=== PATIENT | male | born 1970 | race African-American/Black ===

== ENCOUNTER 2016-07-29 19:46 | Inpatient (IN) | payer MEDICAID, OTHER ==
[~2016-07-29] VITALS: Ht 172.7 cm; Wt 62.6 kg
--- NOTE | 2016-07-29 22:00 | ERA ---
ER Documentation Chief Complaint Date/Time DATE: 07/29/16 TIME: 21:59 Chief Complaint cough x 1 week w/ sob today HPI The patient is a 46-year-old male, presenting to the ER because of intermittent cough for 1 week, associated with shortness of breath. He had history of CHF, did not take medication for 1 month. He has similar symptoms previously, denies headache, neck pain, chest pain, abdominal pain, vomiting, dysuria, diarrhea. He smokes, does not drink, does use amphetamine Past medical history: History of CHF Past surgical history: None ROS All systems reviewed and are negative except as per history of present illness. Medications Home Meds No Active Prescriptions or Reported Meds Allergies Allergies: Coded Allergies: No Known Allergy (Unverified , 07/29/16) Physical Exam Vitals Vital Signs Date Time Temp Pulse Resp B/P Pulse Ox O2 Delivery O2 Flow Rate FiO2 07/29/16 22:26 98 18 100 21 07/29/16 19:59 97.7 100 20 42/89 100 Physical Exam Const: No acute distress. Head: Atraumatic. Eyes: Normal Conjunctiva. ENT: Normal External Ears, Nose and Mouth. Neck: Full range of motion. No meningismus. Resp: Bilateral expiratory wheezes Cardio: Regular rate and rhythm. Abd: Soft, non distended, normal bowel sounds, non tender. Skin: No petechiae or rashes. Back: No midline or flank tenderness. Ext: No cyanosis, or edema. Neur: Awake and alert. No focal deficit Psych: Normal Mood and Affect. Result Diagram: 07/29/16 2210 07/29/16 2210 Results 24 hrs Laboratory Tests Test 07/29/16 22:10 White Blood Count 6.910^3/ul Red Blood Count 4.3310^6/ul Hemoglobin 14.0g/dl Hematocrit 40.9% Mean Corpuscular Volume 94.5fl Mean Corpuscular Hemoglobin 32.3pg Mean Corpuscular Hemoglobin Concent 34.2g/dl Red Cell Distribution Width 14.2% Platelet Count 15966^3/UL Mean Platelet Volume 10.5fl Neutrophils % 55.6% Lymphocytes % 35.2% Monocytes % 4.9% Eosinophils % 3.3% Basophils % 0.7% Nucleated Red Blood Cells % 0.0/100WBC Neutrophils # 3.810^3/ul Lymphocytes # 2.410^3/ul Monocytes # 0.310^3/ul Eosinophils # 0.210^3/ul Basophils # 0.110^3/ul Nucleated Red Blood Cells # 0.010^3/ul Prothrombin Time 13.3Sec Prothrombin Time Ratio 1.0 INR International Normalized Ratio 1.01 Activated Partial Thromboplast Time 31.5Sec Sodium Level 142mmol/L Potassium Level 3.8mmol/L Chloride Level 109mmol/L Carbon Dioxide Level 28mmol/L Anion Gap 9 Blood Urea Nitrogen 16mg/dl Creatinine 0.97mg/dl Glucose Level 88mg/dl Calcium Level 8.7mg/dl Troponin I 0.025ng/ml B-Type Natriuretic Peptide 54084KH/ML Ethyl Alcohol Level < 10.0mg/dl Current Medications Medications (Trade) Dose Ordered Sig/Cisco Route PRN Reason Start Time Stop Time Status Last Admin Dose Admin Levalbuterol (Xopenex Neb) 1.25 mg ONCE ONCE N 07/29/16 22:30 07/29/16 22:31 DC 07/29/16 22:26 Ipratropium Leeper (Atrovent 0.02% (Neb)) 0.5 mg ONCE ONCE HHN 07/29/16 22:30 07/29/16 22:31 DC 07/29/16 22:26 Furosemide (Lasix) 40 mg ONCE ONCE IV 07/30/16 00:00 07/30/16 00:01 Procedures/[place] [id number] Radiology Main Line: [phone] DIAGNOSTIC IMAGING REPORT Patient: BRENT PERERA : 1970 Age: 46 Sex: M MR #: [id number] DOS: 07/29/16 2205 Ordering MD: ROHIT HERRERA MD Location: E/R Room/Bed: PROCEDURE: XR Chest AP portable CLINICAL INDICATION: Short of breath TECHNIQUE: An AP portable radiograph of the chest was submitted. COMPARISON: None. FINDINGS: Support Hardware: None Cardiovascular: The heart is mildly enlarged although pulmonary vasculature is upper normal. Lung Tobar: The lung tobar appear clear with no nodule, alveolar infiltrate, or interstitial prominence evident. Pleural Spaces: No pneumothorax or pleural effusion is identified. Osseous Structures: The osseous structures appear intact. Soft Tissues: The soft tissues appear unremarkable. IMPRESSION: 1. Mild cardiomegaly with the pulmonary vasculature upper normal. 2. Otherwise, unremarkable portable chest. Physician Dinah Date Time Electronically viewed and signed by Physician Dinah on 07/29/2016 22:45 RH/ CC: ROHIT HERRERA MD EKG: Read by emergency physician Rate/Rhythm: Normal Sinus Rhythm 96 beats/min QRS, ST, T-waves: No ST elevation, no T inversion, PVC, LVH Impression: Abnormal EKG Urine drug screen is pending MEDICAL MAKING DECISION: The patient is a 46-year-old male, presenting with acute CHF exacerbation, acute bronchospasm. He was treated with Lasix 40 mg IV for acute CHF and Atrovent 0.5 and Xopenex 1.25 milligrams for acute bronchospasm with good response The differential diagnoses considered include but are not limited to asthma, COPD, pneumonia, pulmonary embolus, pleural effusion, congestive heart failure. Departure Diagnosis: Primary Impression: Acute CHF Condition: Stable Comments I discussed the findings with the patient. I discussed the patient with the on- call hospitalist Dr. Nunez who was made aware of the lab, the treatment, the patient condition. The patient is admitted to telemetry at 11:50 pm ROHIT HERRERA MD Jul 29, 2016 22:00
[2016-07-29] MEDS ORDERED: IPRATROPIUM (NEB) 0.5 MG/2.5 ML AMP HHN ONE (22:30)
[2016-07-29] MEDS ORDERED: LEVALBUTEROL (NEB) 1.25 MG/0.5 ML AMP HHN ONE (22:30)
[2016-07-29 22:40] LABS: ADD SCAN DIFF NO
[2016-07-29 22:41] LABS: BASOPHIL # 0.1 10^3/ul (0.0-0.1); BASOPHILS % 0.7 % (0.0-2.0); EOSINOPHILS # 0.2 10^3/ul (0.0-0.5); EOSINOPHILS % 3.3 % (0.0-7.0); HEMATOCRIT 40.9 % (42.0-52.0); LYMPHOCYTES # 2.4 10^3/ul (0.8-2.9); LYMPHOCYTES % 35.2 % (15.0-51.0); MEAN CORPUSCULAR HEMOGLOBIN 32.3 pg (29.0-33.0); MEAN CORPUSCULAR HGB CONC 34.2 g/dl (32.0-37.0); MEAN CORPUSCULAR VOLUME 94.5 fl (82.0-101.0); MEAN PLATELET VOLUME 10.5 fl (7.4-10.4); MONOCYTE # 0.3 10^3/ul (0.3-0.9); MONOCYTES % 4.9 % (0.0-11.0); NEUTROPHIL # 3.8 10^3/ul (1.6-7.5); NEUTROPHILS % 55.6 % (39.0-77.0); PLATELET COUNT 213 10^3/UL (140-415); RED BLOOD COUNT 4.33 10^6/ul (4.70-6.10); RED CELL DISTRIBUTION WIDTH 14.2 % (11.5-14.5); WHITE BLOOD COUNT 6.9 10^3/ul (4.8-10.8)
--- NOTE | 2016-07-29 22:45 | RADRPT ---
PROCEDURE: XR Chest AP portable CLINICAL INDICATION: Short of breath TECHNIQUE: An AP portable radiograph of the chest was submitted. COMPARISON: None. FINDINGS: Support Hardware: None Cardiovascular: The heart is mildly enlarged although pulmonary vasculature is upper normal. Lung Marks: The lung marks appear clear with no nodule, alveolar infiltrate, or interstitial promi nence evident. Pleural Spaces: No pneumothorax or pleural effusion is identified. Osseous Structures: The osseous structures appear intact. Soft Tissues: The soft tissues appear unremarkable. IMPRESSION: 1. Mild cardiomegaly with the pulmonary vasculature upper normal. 2. Otherwise, unremarkable portable chest. Physician Dinah Date Time Electronically viewed and signed by Physician Dinah on 07/29/2016 22:45 RH/
[2016-07-29 23:00] LABS: CALCIUM 8.7 mg/dl (8.4-10.2); CREATININE 0.97 mg/dl (0.61-1.24); POTASSIUM 3.8 mmol/L (3.5-5.1)
[2016-07-29 23:16] LABS: TROPONIN-I 0.025 ng/ml (0.00-0.12)
[2016-07-29 23:51] LABS: INR 1.01; PROTIME 13.3 Sec (12.2-14.2)
[2016-07-29 23:52] LABS: PARTIAL THROMBOPLASTIN TIME 31.5 Sec (25.0-35.0)
[2016-07-30] VITALS (13 sets, daily range): BP systolic 118–126; BP diastolic 83–96; PULSE 90–98; RESP 19–20; TEMP 98.2; Ht 172.7 cm; Wt 62.6 kg
[2016-07-30] MEDS ORDERED: FUROSEMIDE 40 MG INJ IV ONE
[2016-07-30 00:01] LABS: CANNABINOIDS Positive (NEGATIVE)
[2016-07-30 00:04] LABS: BARBITURATES Negative (NEGATIVE); BENZODIAZEPINES Negative (NEGATIVE); COCAINE Negative (NEGATIVE); OPIATES Negative (NEGATIVE)
[2016-07-30] MEDS ORDERED: ONDANSETRON 4 MG INJ IV PRN (01:00)
[2016-07-30] MEDS ORDERED: ALBUTEROL/IPRATROPIUM (NEB) 3 ML AMP HHN PRN (01:00)
[2016-07-30] MEDS: ACETAMINOPHEN 325 MG TAB PO PRN ×2 (01:37→09:41)
[2016-07-30] MEDS ORDERED: FUROSEMIDE 20 MG INJ IV SCH (06:00)
[2016-07-30 06:38] LABS: ADD SCAN DIFF NO
[2016-07-30 06:44] LABS: BASOPHIL # 0.1 10^3/ul (0.0-0.1); BASOPHILS % 0.9 % (0.0-2.0); EOSINOPHILS # 0.3 10^3/ul (0.0-0.5); EOSINOPHILS % 4.7 % (0.0-7.0); HEMATOCRIT 41.8 % (42.0-52.0); LYMPHOCYTES # 2.1 10^3/ul (0.8-2.9); LYMPHOCYTES % 32.6 % (15.0-51.0); MEAN CORPUSCULAR HGB CONC 33.5 g/dl (32.0-37.0); MEAN CORPUSCULAR VOLUME 92.7 fl (82.0-101.0); MEAN PLATELET VOLUME 10.3 fl (7.4-10.4); MONOCYTE # 0.4 10^3/ul (0.3-0.9); MONOCYTES % 5.8 % (0.0-11.0); NEUTROPHIL # 3.5 10^3/ul (1.6-7.5); NEUTROPHILS % 55.7 % (39.0-77.0); PLATELET COUNT 213 10^3/UL (140-415); RED BLOOD COUNT 4.51 10^6/ul (4.70-6.10); RED CELL DISTRIBUTION WIDTH 14.4 % (11.5-14.5); WHITE BLOOD COUNT 6.3 10^3/ul (4.8-10.8)
[2016-07-30 07:11] LABS: ALBUMIN 3.5 g/dl (3.3-4.9); ALBUMIN/GLOBULIN RATIO 1.59; BILIRUBIN,INDIRECT 0.6 mg/dl (0-1.1); BILIRUBIN,TOTAL 0.6 mg/dl (0.2-1.3); CALCIUM 9.1 mg/dl (8.4-10.2); CHOL/HDL RATIO 2.4 RATIO; CREATININE 0.94 mg/dl (0.61-1.24); MAGNESIUM 1.8 mg/dl (1.7-2.5); PHOSPHORUS 4.2 mg/dl (2.5-4.9); POTASSIUM 3.3 mmol/L (3.5-5.1); TOTAL PROTEIN 5.7 g/dl (6.1-8.1)
[2016-07-30 07:39] LABS: THYROID STIMULATING HORMONE 2.59 MIU/L (0.465-4.680)
--- NOTE | 2016-07-30 08:14 | HP ---
DATE OF ADMISSION: 07/29/2016 TIME: 7 p.m. CHIEF COMPLAINT: Shortness of breath and cough. HISTORY OF PRESENT ILLNESS: The patient is a 46-year-old male with a history of CHF, who presented to the emergency department complaining of shortness of breath and cough with 1 week duration. The cough is for the most part dry and shortness of breath is worse with exertion. Denies chest pain. He states that he has not taken his Lasix for quite some time now. He has a history of tobacco as well as methamphetamine use. When he presented to the ER, vitals were stable, even though the initial vitals were documented as 4 2/89, it was meant 142/89. He was given 40 mg IV Lasix and breathing treatments with albuterol and Atrovent. Chest x-ray shows mild cardiomegaly with pulmonary vasculature in the upper limit of norm al, otherwise unremarkable. Laboratory value shows unremarkable CBC and BMP. However, his BNP is 1 0,200. Initial EKG shows sinus rhythm with a rate of 96 with some PVCs, but no ST-T ____. REVIEW OF SYSTEMS: A 12-point review was performed, negative except as mentioned in the HPI. PAST MEDICAL HISTORY: As per HPI. PAST SURGICAL HISTORY: Denies. SOCIAL HISTORY: He smokes a few cigarettes a day. He also has a history of methamphetamine use. ALLERGIES: NO KNOWN DRUG ALLERGIES. HOME MEDICATIONS: Includes Lasix; however, he has not taken it for a while. PHYSICAL EXAMINATION: VITAL SIGNS: Stable. GENERAL: The patient lying in bed in no acute distress. He is alert and oriented and answers quest ions appropriately. HEENT: No obvious head deformity, pupils react to light. Extraocular muscles intact. CARDIOVASCULAR: Tachycardic with regular rhythm. LUNGS: Clear. ABDOMEN: Soft, nontender, nondistended. Positive bowel sounds. EXTREMITIES: No edema. NEUROLOGIC: No focal deficits. LABORATORY: Pertinent positive results as mentioned in the HPI. IMAGING: Chest x-ray with results as mentioned in the HPI. IMPRESSION: 1. Congestive heart failure exacerbation. 2. Methamphetamine use. 3. Smoking history. PLAN: Continue telemetry monitoring. The patient does state that he has a history of CHF and that he has not been taking his Lasix. His condition is probably the result of methamphetamine use. Vinny l obtain a 2-D echo. He will be continued with Lasix. Will consider cardiology consult. He has be en advised about cessation of tobacco as well as about methamphetamine. Further workup and management per clinical course. Dictated By: CINDY LARSEN/DOUG Conf#: [id number] DID#: [id number]
[2016-07-30] MEDS: HEPARIN 5,000 UNIT/0.5 ML VIAL SC SCH ×2 (09:48→21:00)
[2016-07-30] MEDS ORDERED: POTASSIUM CHLORIDE (SR) 20 MEQ TAB PO STA (11:10)
--- NOTE | 2016-07-30 11:41 | CONS ---
Date/Time of Note Date/Time of Note DATE: 07/30/16 TIME: 11:37 Assessment/Plan Assessment/Plan Additional Assessment/Plan Chest x-ray was reviewed from yesterday which is showing cardiomegaly. 2D echocardiogram done at bedside short while ago is showing a very poor ejection fraction of around 15%. With mitral regurgitation. Assessment recommendations; next 1. 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 Continue current treatment. Cardiology consult is pending per Consultation Date/Type/Reason Admit Date/Time Jul 29, 2016 at 23:58 Date of Consultation: Jul 30, 2016 Type of Consultation: Pulmonary Reason for Consultation Pulmonary consultations obtained for evaluation of shortness of breath. History of presenting any; patient is a 46-year-old male who came into the emergency room with a few weeks history of increasing shortness of breath. Upon evaluation patient was diagnosed with congestive heart failure exacerbation admitted to the medical floor and started on intravenous diuretics with significant improvement in symptoms. She denies any wheezing, chest pain, angina, sputum production. Denies any abdominal pain nausea vomiting fever chills. Past medical history; is essentially unremarkable. Medications; reviewed. Allergies; none. Social history; patient smokes and also has a history of extensive drug abuse. Family history; patient is single he does not have any children. Occupational history; patient is on disability. Review of systems; denies any headache, visual changes. Sinus symptoms. Chest pain, angina. Complains of shortness of breath with interval improvement. Denies any abdominal pain, nausea vomiting, melena, hematochezia. Denies any edema. Denies any orthopnea. Any weight change. Any skin changes. General exam; young male, awake alert currently in no distress, laying flat in bed. Social History Smoking Status: Current every day smoker Exam/Review of Systems Vital Signs Vitals Vital Signs Date Time Temp Pulse Resp B/P Pulse Ox O2 Delivery O2 Flow Rate FiO2 07/30/16 08:03 90 07/30/16 07:39 97.5 20 120/86 93 07/29/16 22:26 21 Exam HEENT examination; supple neck, positive JVD. No lymphadenopathy. Midline trachea. No thyromegaly. No neck masses. No neck bruits. Patient has a multiple carious teeth. Pupils are midsize and reactive to light bilaterally and equally. Extraocular movements are intact. Chest examination; clear to auscultation. S1-S2 audible, no murmurs. There is an S3 gallop. Regular rhythm. Abdomen examination; soft, nondistended. No organomegaly. Bowel sounds audible. No scars are present. Extremity examination; no peripheral edema. Pulses 2+ bilaterally. No clubbing. CASINO BANKER examination; no focal deficit. Results Result Diagram: 07/30/16 0611 07/30/16 0611 Results 24 hrs Laboratory Tests Test 07/29/16 22:10 07/29/16 22:46 07/30/16 06:11 White Blood Count 6.9 6.3 Red Blood Count 4.33 L 4.51 L Hemoglobin 14.0 14.0 Hematocrit 40.9 L 41.8 L Mean Corpuscular Volume 94.5 92.7 Mean Corpuscular Hemoglobin 32.3 31.0 Mean Corpuscular Hemoglobin Concent 34.2 33.5 Red Cell Distribution Width 14.2 14.4 Platelet Count 213 213 Mean Platelet Volume 10.5 H 10.3 Neutrophils % 55.6 55.7 Lymphocytes % 35.2 32.6 Monocytes % 4.9 5.8 Eosinophils % 3.3 4.7 Basophils % 0.7 0.9 Nucleated Red Blood Cells % 0.0 0.0 Neutrophils # 3.8 3.5 Lymphocytes # 2.4 2.1 Monocytes # 0.3 0.4 Eosinophils # 0.2 0.3 Basophils # 0.1 0.1 Nucleated Red Blood Cells # 0.0 0.0 Prothrombin Time 13.3 Prothrombin Time Ratio 1.0 INR International Normalized Ratio 1.01 Activated Partial Thromboplast Time 31.5 Sodium Level 142 144 Potassium Level 3.8 3.3 L Chloride Level 109 109 Carbon Dioxide Level 28 28 Anion Gap 9 10 Blood Urea Nitrogen 16 16 Creatinine 0.97 0.94 Glucose Level 88 75 Calcium Level 8.7 9.1 Troponin I 0.025 B-Type Natriuretic Peptide 95166 H Ethyl Alcohol Level < 10.0 Urine Opiates Screen Negative Urine Barbiturates Negative Urine Amphetamines Screen POSITIVE Urine Benzodiazepines Screen Negative Urine Cocaine Screen Negative Urine Cannabinoids Positive Hemoglobin A1c 5.6 Phosphorus Level 4.2 Magnesium Level 1.8 Total Bilirubin 0.6 Direct Bilirubin 0.00 Indirect Bilirubin 0.6 Aspartate Amino Transf (AST/SGOT) 39 Alanine Aminotransferase (ALT/SGPT) 46 Alkaline Phosphatase 68 Total Protein 5.7 L Albumin 3.5 Globulin 2.20 Albumin/Globulin Ratio 1.59 Triglycerides Level 93 Cholesterol Level 149 LDL Cholesterol, Calculated 70 HDL Cholesterol 60 Cholesterol/HDL Ratio 2.4 Thyroid Stimulating Hormone (TSH) 2.590 Medications Medications Current Medications Furosemide (Lasix) 20 mg DAILY@06 IV Last administered on 07/30/16 06:18; Admin Dose 20 MG; Start 07/30/16 at 06:00 Acetaminophen (Tylenol Tab) 650 mg Q6H PRN PO PAIN AND OR ELEVATED TEMP Last administered on 07/30/16 09:41; Admin Dose 650 MG; Start 07/30/16 at 01:00 Heparin Sodium (Porcine) (Heparin (5000 Units/0.5 ml)) 5,000 unit BID SC Last administered on 07/30/16 09:48; Admin Dose 5,000 UNIT; Start 07/30/16 at 09:00 Ondansetron HCl (Zofran Inj) 4 mg Q6H PRN IV NAUSEA AND/OR VOMITING; Start 07/30 at 01:00 Pantoprazole (Protonix Tab) 40 mg DAILY@06 PO ; Start 07/31/16 at 06:00 Nicotine (Nicoderm 7 Mg/ 24 Hr) 1 patch DAILY TRANSDERM ; Start 07/30/16 at 13:00 DOMINGO CLIFFORD Jul 30, 2016 11:41
[2016-07-30] MEDS: NICOTINE (7 MG/24 HR) PATCH TRANSDERM SCH (12:59)
--- NOTE | 2016-07-30 19:53 | RADRPT ---
Echocardiogram Report Patient Name: BRENT PERERA Gender: Male Date: 1970 Study Date: 30-Jul-2016 [employer] Finishing Hand: Arin [facility] Location: 502 Ref. Physician: TIMI ELENA Quality: Adequate Procedures: Transthoracic echocardiogram with complete 2D, M-Mode, and doppler examination. Indications: Congestive Heart Failure. 2D/M Mode Doppler Measurement Value Normal Ranges Measurement Value Normal Ranges LVIDd 2D 6.3 3.5 - 5.6 cm AV Peak Abraham 0.8 m/sec LVIDs 2D 5.9 2.1 - 4.1 cm AV Peak PG 2.4 mmHg LVPWd 2D 0.9 0.6 - 1.1 cm LVOT Peak Abraham 0.6 m/sec IVSd 2D 0.8 0.6 - 1.1 cm LVOT Peak PG 1.2 mmHg AoR Diam 2D 2.8 2.0 - 3.7 cm TR Peak Abraham 3.1 m/sec EDV 2D 200.4 cm3 TR Peak PG 38.9 mmHg ESV 2D 204.3 cm3 RVSP 29.0 mmHg LA Dimen 2D 4.0 2.3 - 4.0 cm Findings Left Ventricle: Normal left ventricular wall thickness. Mild enlargement of left ventricle cavity. Severe global left ventricular systolic dysfunction. Ejection fraction is visually estimated at 2025 %. Right Ventricle: Moderate enlargement of right ventricle. Moderate right ventricular hypokinesis. Left Atrium: There is moderate enlargement of left atrium. Right Atrium: There is mild enlargement of right atrium. Mitral Valve: Mild mitral leaflet calcification. Moderate to severe mitral valve regurgitation. Aortic Valve: Normal appearance of the aortic valve. No significant aortic stenosis or insufficiency. Tricuspid Valve: Normal appearance of the tricuspid valve. Estimated peak PA systolic pressure 29 mmHg. There is mild to moderate tricuspid regurgitation. Pulmonic Valve: Normal pulmonic valve appearance. There is mild pulmonic regurgitation. Pericardium: Normal pericardium with no significant pericardial effusion. Aorta: Normal aortic root. IVC: Normal size and poor inspiratory collapse consistent with elevated right atrial pressure. Conclusions 1.Normal left ventricular wall thickness. Mild enlargement of left ventricle cavity. Severe global left ventricular systolic dysfunction. Ejection fraction is visually estimated at 20-25 %. 2.Moderate enlargement of right ventricle. Moderate right ventricular hypokinesis. 3.There is moderate enlargement of left atrium. 4.There is mild enlargement of right atrium. 5.Mild mitral leaflet calcification. Moderate to severe mitral valve regurgitation. 6.Normal appearance of the tricuspid valve. Estimated peak PA systolic pressure 29 mmHg. There is mild to moderate tricuspid regurgitation. 7.Normal pulmonic valve appearance. There is mild pulmonic regurgitation. Electronically Signed By: Cortez Navas 30-Jul-2016 19:52:07 -0700 Patient Name: BRENT PERERA Study Date: 30-Jul-2016 [id number]
--- NOTE | 2016-07-30 21:02 | CONS ---
DATE OF ADMISSION: 07/29/2016 DATE OF CONSULTATION: 07/30/2016 REASON FOR CONSULTATION: Congestive heart failure exacerbation. REQUESTING PHYSICIAN: Dr. Elena from the hospitalist service. HISTORY OF PRESENT ILLNESS: Mr. Burrows is a 46-year-old male with a history of cardiomyopathy with decreased left ventricular ejection fraction, congestive heart failure, illicit drug use including a mphetamines, methamphetamines, who presented with complaints of worsening shortness of breath, ortho pnea, cough x1 week. The patient describes cough as dry, nonproductive. Upon arrival in the emerge ncy department, temperature 97.7, blood pressure 143/89, pulse 100, respiratory rate 20, saturating 100%. The patient's labs showed white blood cell count 6.9, hemoglobin 14, platelet count 213. Sod ium 142, potassium 20, creatinine 0.97. Troponin negative. BNP of 10,200. LDL 70, HDL 60. TSH 2. 59. Hemoglobin A1c of 5.6. INR 1.0. Tox screen positive for amphetamines, positive for cannabinoi ds. The patient's electrocardiogram revealed sinus rhythm, rate 96, normal axis, borderline voltage criteria for left ventricular hypertrophy and inferolateral biphasic T-wave abnormalities. Patient subsequently admitted to the floor and since admit to the floor, has been treated with Lasix diures is with improvement in symptomatology. The patient at this time denies chest pain. PAST MEDICAL HISTORY: As above in HPI. MEDICATIONS CURRENTLY IN HOSPITAL: 1. Protonix 40 mg daily. 2. Nicotine patch. 3. Heparin 5000 subq b.i.d. 4. Lasix 20 mg IV daily. 5. Tylenol p.r.n. 6. Zofran p.r.n. 7. DuoNebs p.r.n. ALLERGIES: NO KNOWN DRUG ALLERGIES. SOCIAL HISTORY: Positive tobacco daily. Positive illicit drug use, amphetamines, methamphetamines. No ETOH per patient. FAMILY HISTORY: No history of sudden cardiac or early CAD. REVIEW OF SYSTEMS: As above in HPI. CONSTITUTIONAL: No fevers, chills. PULMONARY: Shortness of breath. CARDIOVASCULAR: Congestive heart failure. GASTROINTESTINAL: No vomiting. GENITOURINARY: No hematuria. MUSCULOSKELETAL: Degenerative joint disease. PSYCHIATRIC: No documented psych history. NEUROLOGIC: No documented CVA. PHYSICAL EXAMINATION VITAL SIGNS: Temperature 97.8, blood pressure 118/92, pulse 99, respiratory 20, saturating 98%. GENERAL: The patient is alert, awake, in no acute distress. NECK: JVP approximately 9-10 cm water. CHEST: Bibasilar crackles. HEART: Regular rate and rhythm. Normal S1, S2, I/ systolic murmur, nondisplaced PMI. ABDOMEN: Positive bowel sounds, soft. EXTREMITIES: Trace edema, 1+ pulses bilaterally, posterior tibial. LABORATORIES: As above in HPI, with most recent from today, sodium 144, potassium 3.3, creatinine 0 .9. White count 6.3, hemoglobin 14, platelet count 213. IMAGING STUDIES: Chest x-ray from the 7th revealing mild cardiomegaly with pulmonary vascular ____ was normal. ECG: As above in HPI. No further electrocardiograms for my review at this time. IMPRESSION: 1. Congestive heart failure exacerbation by history, systolic, acute on chronic. 2. Abnormal electrocardiogram, assess for acute coronary syndrome. 3. Shortness of breath secondary to #1. 4. History of cardiomyopathy with severely depressed left ventricular ejection fraction. 5. Ongoing tobacco usage. 6. Illicit drug use. 7. Hyperkalemia 8. Increased BNP. RECOMMENDATIONS: 1. At this time, would maintain the patient on telemetry monitoring to follow rhythm and rate close ly. 2. Would check serial EKGs to assess for any significant ongoing changes and complete a rule out fo r myocardial infarction to ensure that the patient's constellation of symptoms are not due to any re cent acute coronary syndrome versus acute myocardial infarction and thus send troponins q.6h x2. 3. Additionally place the patient on beta blockade and afterload reduction with VICKI inhibitor. 4. We will continue the patient's Lasix diuresis. 5. Replete the patient's potassium as you have done and will follow the patient's magnesium as well . Thank you for allowing me to take part in the care of this patient. I will continue to follow along very closely with you with recommendations to be made as the patient progresses through his [facility] clinical course. Dictated By: ADRIAN QUINTEROS/DOUG Conf#: [id number] DID#: [id number] CC: TIMI ELENA;*EndCC*
[2016-07-30] MEDS: FUROSEMIDE 20 MG INJ IV SCH (21:35)
[2016-07-31] VITALS (13 sets, daily range): BP systolic 97–129; BP diastolic 69–94; PULSE 81–156; RESP 16–19
[2016-07-31] MEDS: PANTOPRAZOLE (EC) 40 MG TAB PO SCH (06:49)
[2016-07-31] MEDS: FUROSEMIDE 20 MG INJ IV SCH (06:50)
[2016-07-31 07:23] LABS: ADD SCAN DIFF NO
[2016-07-31 07:27] LABS: BASOPHIL # 0.1 10^3/ul (0.0-0.1); BASOPHILS % 1.3 % (0.0-2.0); EOSINOPHILS # 0.3 10^3/ul (0.0-0.5); EOSINOPHILS % 4.9 % (0.0-7.0); HEMATOCRIT 43.1 % (42.0-52.0); LYMPHOCYTES # 1.7 10^3/ul (0.8-2.9); LYMPHOCYTES % 26.2 % (15.0-51.0); MEAN CORPUSCULAR HEMOGLOBIN 32.1 pg (29.0-33.0); MEAN CORPUSCULAR HGB CONC 34.8 g/dl (32.0-37.0); MEAN CORPUSCULAR VOLUME 92.1 fl (82.0-101.0); MEAN PLATELET VOLUME 10.4 fl (7.4-10.4); MONOCYTE # 0.4 10^3/ul (0.3-0.9); MONOCYTES % 5.7 % (0.0-11.0); NEUTROPHIL # 3.9 10^3/ul (1.6-7.5); NEUTROPHILS % 61.7 % (39.0-77.0); PLATELET COUNT 234 10^3/UL (140-415); RED BLOOD COUNT 4.68 10^6/ul (4.70-6.10); RED CELL DISTRIBUTION WIDTH 14.2 % (11.5-14.5); WHITE BLOOD COUNT 6.3 10^3/ul (4.8-10.8)
--- NOTE | 2016-07-31 07:36 | PN ---
DATE: 07/30/2016 SUBJECTIVE: The patient has slightly less shortness of breath symptoms. OBJECTIVE: VITAL SIGNS: Stable. GENERAL: The patient is lying in bed, no acute distress. HEENT: Pupils equal, round, react to light. Extraocular muscles intact. NECK: Supple, no thyromegaly. LUNGS: Distant breath sounds bilaterally. CARDIOVASCULAR: S1, S2 heard. No rubs or gallops. ABDOMEN: Soft, nontender, nondistended. Normal bowel sounds. No rebound or guarding. MUSCULOSKELETAL: No lower extremity edema bilaterally. NEUROLOGIC: No focal deficits. LABORATORY DATA: The BNP is 10,200. The comprehensive metabolic panel is normal except potassium is a little low at 3.3. CBC is normal. The U-tox is positive for amphetamines and for cannabis. ASSESSMENT AND PLAN: This is a 46-year-old male with history of congestive heart failure presents w ith shortness of breath and cough x1 week, with signs of congestive heart failure exacerbation. 1. Shortness of breath and cough. Again, secondary to congestive heart failure exacerbation. Agai n, continue low-dose Lasix. We will follow up 2D echocardiogram results as well. Follow up electro lyte levels. If there are any abnormalities, consider cardiology consult at that time. Also contin ue DuoNeb p.r.n. 2. History of amphetamine use. Counseled about cessation. 3. Smoking history. Consider nicotine patch and counseled on cessation of tobacco 4. Gastrointestinal prophylaxis. Add Protonix p.o. 5. Deep venous thrombosis prophylaxis. Add heparin subcutaneously. Dictated By: TIMI MURDOCK Conf#: [id number] DID#: [id number]
[2016-07-31 07:51] LABS: CALCIUM 8.8 mg/dl (8.4-10.2); CREATININE 1.09 mg/dl (0.61-1.24); POTASSIUM 4.1 mmol/L (3.5-5.1)
--- NOTE | 2016-07-31 08:59 | RADRPT ---
Vent Rate: 85 bpm RR Interval: 0 msec [place] Interval: 148 msec QRS Duration: 88 msec QT Interval: 408 msec QTC Interval: 485 msec P-R-T [place]: 65 - 77 - 61 degrees Normal sinus rhythm Possible Left atrial enlargement Poor R -Wave progression Abnormal ECG Nonspecific ST-T changes No previous tracing available for comparison Electronically Signed By: Isak Sanches [id number]
[2016-07-31] MEDS: NICOTINE (7 MG/24 HR) PATCH TRANSDERM SCH (09:49)
[2016-07-31] MEDS: LISINOPRIL 5 MG TAB PO SCH (09:50)
[2016-07-31] MEDS: HEPARIN 5,000 UNIT/0.5 ML VIAL SC SCH ×3 (09:54→22:09)
--- NOTE | 2016-07-31 11:19 | CONS ---
Date/Time of Note Date/Time of Note DATE: 07/31/16 TIME: 11:16 Consult Date/Type/Reason Admit Date/Time Jul 29, 2016 at 23:58 Initial Consult Date 07/30/16 Type of Consultation: Pulmonary Subjective Patient states his breathing is better this morning less shortness of breath patient states his breathing is better this morning with less shortness of breath Objective Vital Signs Date Time Temp Pulse Resp B/P Pulse Ox O2 Delivery O2 Flow Rate FiO2 07/31/16 11:08 98.0 85 16 102/76 96 07/29/16 22:26 21 Intake and Output 07/30/16 07/30/16 07/31/16 15:00 23:00 07:00 Intake Total 1000 ml 350 ml Balance 1000 ml 350 ml Exam GENERAL: Thin gentleman comfortable at rest no acute distress VITAL SIGNS: per chart NECK: Supple. No JVD or lymphadenopathy. CARDIAC EXAM: S1, S2. 2/6 systolic ejection murmur CHEST: few rales bilaterally ABDOMEN: Soft, nontender. No guarding or rebound. EXTREMITIES: No cyanosis, clubbing or edema. NEUROLOGIC: Generalized weakness. No focal deficits. Results/Medications Result Diagram: 07/31/16 0640 07/31/16 0640 Results 24 hrs Laboratory Tests Test 07/31/16 00:30 07/31/16 06:40 Troponin I 0.023 0.023 White Blood Count 6.3 Red Blood Count 4.68 L Hemoglobin 15.0 Hematocrit 43.1 Mean Corpuscular Volume 92.1 Mean Corpuscular Hemoglobin 32.1 Mean Corpuscular Hemoglobin Concent 34.8 Red Cell Distribution Width 14.2 Platelet Count 234 Mean Platelet Volume 10.4 Neutrophils % 61.7 Lymphocytes % 26.2 Monocytes % 5.7 Eosinophils % 4.9 Basophils % 1.3 Nucleated Red Blood Cells % 0.0 Neutrophils # 3.9 Lymphocytes # 1.7 Monocytes # 0.4 Eosinophils # 0.3 Basophils # 0.1 Nucleated Red Blood Cells # 0.0 Sodium Level 140 Potassium Level 4.1 Chloride Level 106 Carbon Dioxide Level 28 Anion Gap 10 Blood Urea Nitrogen 21 H Creatinine 1.09 Glucose Level 106 Calcium Level 8.8 Medications Current Medications Acetaminophen (Tylenol Tab) 650 mg Q6H PRN PO PAIN AND OR ELEVATED TEMP Last administered on 07/30/16 09:41; Admin Dose 650 MG; Start 07/30/16 at 01:00 Heparin Sodium (Porcine) (Heparin (5000 Units/0.5 ml)) 5,000 unit BID SC Last administered on 07/31/16 09:54; Admin Dose 5,000 UNIT; Start 07/30/16 at 09:00 Ondansetron HCl (Zofran Inj) 4 mg Q6H PRN IV NAUSEA AND/OR VOMITING; Start 07/30 at 01:00 Pantoprazole (Protonix Tab) 40 mg DAILY@06 PO Last administered on 07/31/16 06: 49; Admin Dose 40 MG; Start 07/31/16 at 06:00 Nicotine (Nicoderm 7 Mg/ 24 Hr) 1 patch DAILY TRANSDERM Last administered on 09:49; Admin Dose 1 PATCH; Start 07/30/16 at 13:00 Lisinopril (Zestril) 2.5 mg DAILY PO Last administered on 07/31/16 09:50; Admin Dose 2.5 MG; Start 07/31/16 at 09:00 Carvedilol (Coreg) 3.125 mg BID PO Last administered on 07/31/16 09:50; Admin Dose 3.125 MG; Start 07/30/16 at 21:00 Assessment/Plan Chief Complaint/Hosp Course Assessment. 1. Cardiomyopathy likely secondary to substance abuse ejection fraction estimated at 15% 2. Acute congestive cardiac failure Plan 1. Supplemental O2 as needed 2. Diuretics 3. Cardiac recommendations 4. hired worker input 5. Anticipate discharge tomorrow Problems: LEENA CLARK MD, [facility] Jul 31, 2016 11:19
--- NOTE | 2016-07-31 11:54 | PN ---
Date/Time of Note Date/Time of Note DATE: 07/31/16 TIME: 11:51 Assessment/Plan VTE Prophylaxis VTE Prophylaxis Intervention: heparin Lines/Catheters IV [facility]from [facility] Saline Lock Assessment/Plan Chief Complaint/Hosp Course ASSESSMENT AND PLAN: 46-year-old male with history of congestive heart failure presents with shortness of breath and cough x1 week, with signs of congestive heart failure exacerbation. 1. Shortness of breath and cough. Again, secondary to congestive heart failure exacerbation. EF = 20-25% - continue Lasix. - continue DuoNeb p.r.n. - VICKI(-), Bblocker, f/u CV and pulm rec's - AICD? 2. History of amphetamine use. Counseled about cessation. 3. Smoking history - nicotine patch and counseled on cessation of tobacco 4. Gastrointestinal prophylaxis - Protonix p.o. 5. Deep venous thrombosis prophylaxis - heparin subcutaneously. Problems: Subjective 24 Hr Interval Summary Free Text/Dictation Pt has less SOB. Seen by pulm and CV teams. Exam/Review of Systems Vital Signs Vitals Vital Signs Date Time Temp Pulse Resp B/P Pulse Ox O2 Delivery O2 Flow Rate FiO2 07/31/16 11:08 98.0 85 16 102/76 96 07/29/16 22:26 21 Intake and Output 07/30/16 07/30/16 07/31/16 15:00 23:00 07:00 Intake Total 1000 ml 350 ml Balance 1000 ml 350 ml Exam GENERAL: The patient is lying in bed, no acute distress. HEENT: Pupils equal, round, react to light. Extraocular muscles intact. NECK: Supple, no thyromegaly. LUNGS: Distant breath sounds bilaterally. CARDIOVASCULAR: S1, S2 heard. No rubs or gallops. ABDOMEN: Soft, nontender, nondistended. Normal bowel sounds. No rebound or guarding. MUSCULOSKELETAL: No lower extremity edema bilaterally. NEUROLOGIC: No focal deficits. Results Result Diagram: 07/31/16 0640 07/31/16 0640 Results 24 hrs Laboratory Tests Test 07/31/16 00:30 07/31/16 06:40 Troponin I 0.023 0.023 White Blood Count 6.3 Red Blood Count 4.68 L Hemoglobin 15.0 Hematocrit 43.1 Mean Corpuscular Volume 92.1 Mean Corpuscular Hemoglobin 32.1 Mean Corpuscular Hemoglobin Concent 34.8 Red Cell Distribution Width 14.2 Platelet Count 234 Mean Platelet Volume 10.4 Neutrophils % 61.7 Lymphocytes % 26.2 Monocytes % 5.7 Eosinophils % 4.9 Basophils % 1.3 Nucleated Red Blood Cells % 0.0 Neutrophils # 3.9 Lymphocytes # 1.7 Monocytes # 0.4 Eosinophils # 0.3 Basophils # 0.1 Nucleated Red Blood Cells # 0.0 Sodium Level 140 Potassium Level 4.1 Chloride Level 106 Carbon Dioxide Level 28 Anion Gap 10 Blood Urea Nitrogen 21 H Creatinine 1.09 Glucose Level 106 Calcium Level 8.8 Medications Medications Current Medications Acetaminophen (Tylenol Tab) 650 mg Q6H PRN PO PAIN AND OR ELEVATED TEMP Last administered on 07/30/16 09:41; Admin Dose 650 MG; Start 07/30/16 at 01:00 Heparin Sodium (Porcine) (Heparin (5000 Units/0.5 ml)) 5,000 unit BID SC Last administered on 07/31/16 09:54; Admin Dose 5,000 UNIT; Start 07/30/16 at 09:00 Ondansetron HCl (Zofran Inj) 4 mg Q6H PRN IV NAUSEA AND/OR VOMITING; Start 07/30 at 01:00 Pantoprazole (Protonix Tab) 40 mg DAILY@06 PO Last administered on 07/31/16 06: 49; Admin Dose 40 MG; Start 07/31/16 at 06:00 Nicotine (Nicoderm 7 Mg/ 24 Hr) 1 patch DAILY TRANSDERM Last administered on 09:49; Admin Dose 1 PATCH; Start 07/30/16 at 13:00 Lisinopril (Zestril) 2.5 mg DAILY PO Last administered on 07/31/16 09:50; Admin Dose 2.5 MG; Start 07/31/16 at 09:00 Carvedilol (Coreg) 3.125 mg BID PO Last administered on 07/31/16 09:50; Admin Dose 3.125 MG; Start 07/30/16 at 21:00 Procedures Procedures 2D ECHO: Conclusions 1. Normal left ventricular wall thickness. Mild enlargement of left ventricle cavity. Severe global left ventricular systolic dysfunction. Ejection fraction is visually estimated at 20-25 %. 2. Moderate enlargement of right ventricle. Moderate right ventricular hypokinesis. 3. There is moderate enlargement of left atrium. 4. There is mild enlargement of right atrium. 5. Mild mitral leaflet calcification. Moderate to severe mitral valve regurgitation. 6. Normal appearance of the tricuspid valve. Estimated peak PA systolic pressure 29 mmHg. There is mild to moderate tricuspid regurgitation. 7. Normal pulmonic valve appearance. There is mild pulmonic regurgitation. TIMI ELENA. Jul 31, 2016 11:54
--- NOTE | 2016-07-31 12:00 | CONS ---
Date/Time of Note Date/Time of Note DATE: 07/31/16 TIME: 11:55 Assessment/Plan Assessment/Plan Chief Complaint/Hosp Course IMPRESSION: 1. Congestive heart failure exacerbation by history, systolic, acute on chronic. 2. Abnormal electrocardiogram, assess for acute coronary syndrome.-negative troponin x 3 3. Shortness of breath secondary to #1. 4. History of cardiomyopathy with severely depressed left ventricular ejection fraction. 5. Ongoing tobacco usage. 6. Illicit drug use. 7. Hyperkalemia 8. Increased BNP. Recc: -Tele -serial ecg's -Continue coreg/zestril -Contnue lasix diuresis Problems: Consultation Date/Type/Reason Admit Date/Time Jul 29, 2016 at 23:58 Initial Consult Date 07/30/16 Type of Consultation: cardiology Reason for Consultation CHF Referring Provider: TIMI ELENA Exam/Review of Systems Vital Signs Vitals Vital Signs Date Time Temp Pulse Resp B/P Pulse Ox O2 Delivery O2 Flow Rate FiO2 07/31/16 11:08 98.0 85 16 102/76 96 07/29/16 22:26 21 Intake and Output 07/30/16 07/30/16 07/31/16 15:00 23:00 07:00 Intake Total 1000 ml 350 ml Balance 1000 ml 350 ml Exam Review of Systems: CONSTITUTIONAL: No fevers, chills. PULMONARY: No sob CARDIOVASCULAR: No chest pain/palpitations GASTROINTESTINAL: No nausea/vomiting. GENITOURINARY: No hematuria/dysuria. MUSCULOSKELETAL: No myagias/arthalgias. PSYCHIATRIC: The patient denies depression. NEUROLOGIC: lethargic Constitutional: alert Psych: no complaints Head: normocephalic ENMT: mucosa pink and moist Neck: jvd (9 cm water), supple Respiratory: diminished breath sounds (at bases/B) Cardiovascular: regular rate and rhythm Gastrointestinal: non-tender, soft Musculoskeletal: muscle tone (normal) Extremities: edema (none) Neurological: other (No focal deficits) Results Result Diagram: 07/31/16 0640 07/31/16 0640 Results 24 hrs Laboratory Tests Test 07/31/16 00:30 07/31/16 06:40 Troponin I 0.023 0.023 White Blood Count 6.3 Red Blood Count 4.68 L Hemoglobin 15.0 Hematocrit 43.1 Mean Corpuscular Volume 92.1 Mean Corpuscular Hemoglobin 32.1 Mean Corpuscular Hemoglobin Concent 34.8 Red Cell Distribution Width 14.2 Platelet Count 234 Mean Platelet Volume 10.4 Neutrophils % 61.7 Lymphocytes % 26.2 Monocytes % 5.7 Eosinophils % 4.9 Basophils % 1.3 Nucleated Red Blood Cells % 0.0 Neutrophils # 3.9 Lymphocytes # 1.7 Monocytes # 0.4 Eosinophils # 0.3 Basophils # 0.1 Nucleated Red Blood Cells # 0.0 Sodium Level 140 Potassium Level 4.1 Chloride Level 106 Carbon Dioxide Level 28 Anion Gap 10 Blood Urea Nitrogen 21 H Creatinine 1.09 Glucose Level 106 Calcium Level 8.8 Medications Medications Current Medications Acetaminophen (Tylenol Tab) 650 mg Q6H PRN PO PAIN AND OR ELEVATED TEMP Last administered on 07/30/16 09:41; Admin Dose 650 MG; Start 07/30/16 at 01:00 Heparin Sodium (Porcine) (Heparin (5000 Units/0.5 ml)) 5,000 unit BID SC Last administered on 07/31/16 09:54; Admin Dose 5,000 UNIT; Start 07/30/16 at 09:00 Ondansetron HCl (Zofran Inj) 4 mg Q6H PRN IV NAUSEA AND/OR VOMITING; Start 07/30 at 01:00 Pantoprazole (Protonix Tab) 40 mg DAILY@06 PO Last administered on 07/31/16 06: 49; Admin Dose 40 MG; Start 07/31/16 at 06:00 Nicotine (Nicoderm 7 Mg/ 24 Hr) 1 patch DAILY TRANSDERM Last administered on 09:49; Admin Dose 1 PATCH; Start 07/30/16 at 13:00 Lisinopril (Zestril) 2.5 mg DAILY PO Last administered on 07/31/16 09:50; Admin Dose 2.5 MG; Start 07/31/16 at 09:00 Carvedilol (Coreg) 3.125 mg BID PO Last administered on 07/31/16 09:50; Admin Dose 3.125 MG; Start 07/30/16 at 21:00 ADRIAN RIOS Jul 31, 2016 12:00
[2016-07-31] MEDS: FUROSEMIDE 20 MG TAB PO SCH (17:44)
[2016-08-01] VITALS (11 sets, daily range): BP systolic 106–119; BP diastolic 60–75; PULSE 77–89; RESP 16–18
[2016-08-01] MEDS: PANTOPRAZOLE (EC) 40 MG TAB PO SCH (05:53)
[2016-08-01] MEDS: FUROSEMIDE 20 MG TAB PO SCH ×2 (05:54→18:09)
[2016-08-01] MEDS: HEPARIN 5,000 UNIT/0.5 ML VIAL SC SCH ×2 (08:57→21:00)
[2016-08-01] MEDS: NICOTINE (7 MG/24 HR) PATCH TRANSDERM SCH (08:57)
[2016-08-01] MEDS: LISINOPRIL 5 MG TAB PO SCH (09:00)
--- NOTE | 2016-08-01 11:16 | CONS ---
Date/Time of Note Date/Time of Note DATE: 08/01/16 TIME: 11:14 Assessment/Plan Assessment/Plan Chief Complaint/Hosp Course IMPRESSION: 1. Congestive heart failure exacerbation by history, systolic, acute on chronic. 2. Abnormal electrocardiogram, assess for acute coronary syndrome.-negative troponin x 3 3. Shortness of breath secondary to #1. 4. History of cardiomyopathy with severely depressed left ventricular ejection fraction. 5. Ongoing tobacco usage. 6. Illicit drug use. 7. Hyperkalemia 8. Increased BNP. Recc: -Tele -serial ecg's -Continue coreg/zestril -Contnue lasix diuresis PO -Lexiscan today Problems: Consultation Date/Type/Reason Admit Date/Time Jul 29, 2016 at 23:58 Initial Consult Date 07/30/16 Type of Consultation: cardiology Reason for Consultation CHF/cardiomyopathy Referring Provider: TIMI ELENA Exam/Review of Systems Vital Signs Vitals Vital Signs Date Time Temp Pulse Resp B/P Pulse Ox O2 Delivery O2 Flow Rate FiO2 08/01/16 08:30 80 08/01/16 07:41 97.9 18 111/75 96 07/29/16 22:26 21 Intake and Output 07/31/16 07/31/16 08/01/16 15:00 23:00 07:00 Intake Total 900 ml 400 ml Output Total 2000 ml 300 ml Balance -1100 ml 100 ml Exam Review of Systems: CONSTITUTIONAL: No fevers, chills. PULMONARY: No sob CARDIOVASCULAR: No chest pain/palpitations GASTROINTESTINAL: No nausea/vomiting. GENITOURINARY: No hematuria/dysuria. MUSCULOSKELETAL: No myagias/arthalgias. PSYCHIATRIC: The patient denies depression. NEUROLOGIC: lethargic Constitutional: alert Psych: no complaints Head: normocephalic ENMT: mucosa pink and moist Neck: jvd (8 cm water), supple Respiratory: diminished breath sounds (at bases/B) Cardiovascular: regular rate and rhythm Gastrointestinal: non-tender, soft Musculoskeletal: muscle tone (normal) Extremities: edema (none) Neurological: other (No focal deficits) Results Result Diagram: 07/31/16 0640 07/31/16 0640 Medications Medications Current Medications Acetaminophen (Tylenol Tab) 650 mg Q6H PRN PO PAIN AND OR ELEVATED TEMP Last administered on 07/30/16t 09:41; Admin Dose 650 MG; Start 07/30/16 at 01:00 Heparin Sodium (Porcine) (Heparin (5000 Units/0.5 ml)) 5,000 unit BID SC Last administered on 07/31/16 09:54; Admin Dose 5,000 UNIT; Start 07/30/16 at 09:00 Ondansetron HCl (Zofran Inj) 4 mg Q6H PRN IV NAUSEA AND/OR VOMITING; Start 07/30 at 01:00 Pantoprazole (Protonix Tab) 40 mg DAILY@06 PO Last administered on 08/01/16 05 :53; Admin Dose 40 MG; Start 07/31/16 at 06:00 Nicotine (Nicoderm 7 Mg/ 24 Hr) 1 patch DAILY TRANSDERM Last administered on 09:49; Admin Dose 1 PATCH; Start 07/30/16 at 13:00 Lisinopril (Zestril) 2.5 mg DAILY PO Last administered on 07/31/16 09:50; Admin Dose 2.5 MG; Start 07/31/16 at 09:00 Carvedilol (Coreg) 3.125 mg BID PO Last administered on 08/01/16 09:01; Admin Dose 3.125 MG; Start 07/30/16 at 21:00 ADRIAN RIOS Aug 01, 2016 11:15
--- NOTE | 2016-08-01 11:26 | PN ---
Date/Time of Note Date/Time of Note DATE: 08/01/16 TIME: 11:24 Assessment/Plan VTE Prophylaxis VTE Prophylaxis Intervention: heparin Lines/Catheters IV Catheter Type (from Nrs): Saline Lock Assessment/Plan Chief Complaint/Hosp Course ASSESSMENT AND PLAN: 46-year-old male with history of congestive heart failure presents with shortness of breath and cough x1 week, with signs of congestive heart failure exacerbation. 1. Shortness of breath and cough. Again, secondary to congestive heart failure exacerbation. EF = 20-25% - continue Lasix. - continue DuoNeb p.r.n. - VICKI(-), Bblocker, f/u CV and pulm rec's - AICD? - plan for stress test today - f/u results. 2. History of amphetamine use. Counseled about cessation. 3. Smoking history - nicotine patch and counseled on cessation of tobacco 4. Gastrointestinal prophylaxis - Protonix p.o. 5. Deep venous thrombosis prophylaxis - heparin subcutaneously. Problems: Subjective 24 Hr Interval Summary Free Text/Dictation No acute events overnight. Getting CV stress test presently. Exam/Review of Systems Vital Signs Vitals Vital Signs Date Time Temp Pulse Resp B/P Pulse Ox O2 Delivery O2 Flow Rate FiO2 08/01/16 08:30 80 08/01/16 07:41 97.9 18 111/75 96 07/29/16 22:26 21 Intake and Output 07/31/16 07/31/16 08/01/16 15:00 23:00 07:00 Intake Total 900 ml 400 ml Output Total 2000 ml 300 ml Balance -1100 ml 100 ml Exam PE: - unable to be performed today b/c pt at CV stress test presently Results Result Diagram: 07/31/16 0640 07/31/16 0640 Medications Medications Current Medications Acetaminophen (Tylenol Tab) 650 mg Q6H PRN PO PAIN AND OR ELEVATED TEMP Last administered on 07/30/16 09:41; Admin Dose 650 MG; Start 07/30/16 at 01:00 Heparin Sodium (Porcine) (Heparin (5000 Units/0.5 ml)) 5,000 unit BID SC Last administered on 07/31/16 09:54; Admin Dose 5,000 UNIT; Start 07/30/16 at 09:00 Ondansetron HCl (Zofran Inj) 4 mg Q6H PRN IV NAUSEA AND/OR VOMITING; Start 07/30 at 01:00 Pantoprazole (Protonix Tab) 40 mg DAILY@06 PO Last administered on 08/01/16 05 :53; Admin Dose 40 MG; Start 07/31/16 at 06:00 Nicotine (Nicoderm 7 Mg/ 24 Hr) 1 patch DAILY TRANSDERM Last administered on 09:49; Admin Dose 1 PATCH; Start 07/30/16 at 13:00 Lisinopril (Zestril) 2.5 mg DAILY PO Last administered on 07/31/16 09:50; Admin Dose 2.5 MG; Start 07/31/16 at 09:00 Carvedilol (Coreg) 3.125 mg BID PO Last administered on 08/01/16 09:01; Admin Dose 3.125 MG; Start 07/30/16 at 21:00 TIMI ELENA Aug 01, 2016 11:26
[2016-08-01] MEDS ORDERED: REGADENOSON 0.4 MG/5 ML SYG ONE (11:40)
--- NOTE | 2016-08-01 12:55 | CARRPT ---
DATE OF PROCEDURE: 08/01/2016 TYPE OF PROCEDURE: Lexiscan Cardiolite stress test, electrocardiogram portion. INDICATION: Cardiomyopathy with severely depressed left ventricular ejection fraction, assess for i schemia. BASELINE VITAL SIGNS AND ELECTROCARDIOGRAM: Pulse 86, blood pressure 109/80. Electrocardiogram was normal sinus rhythm at a rate of 92, with inferior T-wave inversions. PROCEDURE: The patient underwent standard Lexiscan infusion protocol over 10 seconds followed by ra diolabeled tracer. The patient's test was stopped due to completion of protocol. Maximal achieved blood pressure during the test 113/82. Maximal achieved heart rate during the test 97. ELECTROCARDIOGRAM FINDINGS: The patient did not develop any new Lexiscan-induced ST or T-wave caputo es from baseline abnormalities. No documented PVCs. SYMPTOMS: The patient had no complaints of chest pain or shortness of breath during stress testing. IMPRESSION: 1. No Lexiscan-induced ST or T-wave changes from baseline abnormalities or diagnostic cardiac ische michael. 2. No complaints of chest pain or shortness of breath during stress testing. 3. No documented premature ventricular contractions during stress testing. 4. Report of nuclear images to follow in separate dictation. Dictated By: ADRIAN QUINTEROS/DOUG Conf#: [id number] DID#: [id number] CC: CINDY CASTANEDA MD;*End*
--- NOTE | 2016-08-01 14:03 | RADRPT ---
PROCEDURE: Nuclear medicine myocardial perfusion scan CLINICAL INDICATION: Chest pain TECHNIQUE: 28.5 mCi of technetium 99m Cardiolite was administered for the stress study. 9.5 mCi o f technetium 99m Cardiolite was administered for the resting study. The patient was stressed with 0. 4 mg of Lexiscan. Images were reviewed in the short axis, vertical long axis, and horizontal long a xis views. Wall motion was assessed and ejection fraction was calculated as well. Images were revie wed on a high-resolution PACS workstation. COMPARISON: None available FINDINGS: Left ventricular size is significantly dilated. There is moderate soft tissue and bowel attenuation artifact. The stress tomographic images demonstrate minimal diminished perfusion along the distal apical septal wall. The resting tomographic images demonstrate a similar pattern. There is no evid ence for reversible ischemia. Wall motion is severely diminished. The ejection fraction is calcula armando at 20%. IMPRESSION: 1. Focal diminished perfusion along the distal anteroseptal wall, similar on the stress and rest im ages. Findings likely represent a small old nontransmural CA. 2. There is no evidence for reversible ischemia. 3. Severe and significant left ventricular dilatation. 4. Severe globally diminished wall motion. 5. Depressed ejection fraction of 20%. RPTAT: HMJB .Anmol Lacey MD, Date Time Electronically viewed and signed by .Anmol Lacey MD, MD on 08/01/2016 14:03 .B/
--- NOTE | 2016-08-01 18:30 | CONS ---
Date/Time of Note Date/Time of Note DATE: 08/01/16 TIME: 18:28 Consult Date/Type/Reason Admit Date/Time Jul 29, 2016 at 23:58 Initial Consult Date 07/30/16 Type of Consultation: pulm Ordering Provider: TIMI ELENA Subjective no events. Objective Vital Signs Date Time Temp Pulse Resp B/P Pulse Ox O2 Delivery O2 Flow Rate FiO2 08/01/16 16:04 81 08/01/16 15:10 97.5 18 107/72 99 07/29/16 22:26 21 Intake and Output 07/31/16 07/31/16 08/01/16 15:00 23:00 07:00 Intake Total 900 ml 400 ml Output Total 2000 ml 300 ml Balance -1100 ml 100 ml Exam HEENT: Neck supple; no JVD; no LAD CVS: RRR, S1 and S2 CHEST: bibaslar rales ABD: Soft, NT, + BS EXT: No c/c/e Results/Medications Result Diagram: 07/31/16 0640 07/31/16 0640 Medications Current Medications Acetaminophen (Tylenol Tab) 650 mg Q6H PRN PO PAIN AND OR ELEVATED TEMP Last administered on 07/30/16 09:41; Admin Dose 650 MG; Start 07/30/16 at 01:00 Heparin Sodium (Porcine) (Heparin (5000 Units/0.5 ml)) 5,000 unit BID SC Last administered on 07/31/16 09:54; Admin Dose 5,000 UNIT; Start 07/30/16 at 09:00 Ondansetron HCl (Zofran Inj) 4 mg Q6H PRN IV NAUSEA AND/OR VOMITING; Start 07/30 at 01:00 Pantoprazole (Protonix Tab) 40 mg DAILY@06 PO Last administered on 08/01/16 05 :53; Admin Dose 40 MG; Start 07/31/16 at 06:00 Nicotine (Nicoderm 7 Mg/ 24 Hr) 1 patch DAILY TRANSDERM Last administered on 09:49; Admin Dose 1 PATCH; Start 07/30/16 at 13:00 Lisinopril (Zestril) 2.5 mg DAILY PO Last administered on 07/31/16 09:50; Admin Dose 2.5 MG; Start 07/31/16 at 09:00 Carvedilol (Coreg) 3.125 mg BID PO Last administered on 08/01/16t 09:01; Admin Dose 3.125 MG; Start 07/30/16 at 21:00 Assessment/Plan Additional Assessment/Plan 1. CHF 2. History of amphetamine use. Counseled about cessation. 3. Smoking history - nicotine patch and counseled on cessation of tobacco RECS: 1. Diuresis 2 Afterload reduction 3. OOB 4. f/u TRESSA White MD Aug 01, 2016 18:30
[2016-08-02] VITALS (7 sets, daily range): BP systolic 101–112; BP diastolic 62–75; PULSE 71–86; RESP 16–19
[2016-08-02] MEDS: PANTOPRAZOLE (EC) 40 MG TAB PO SCH (06:29)
[2016-08-02] MEDS: FUROSEMIDE 20 MG TAB PO SCH (06:30)
[2016-08-02 07:13] LABS: ADD SCAN DIFF NO
[2016-08-02 07:25] LABS: BASOPHIL # 0.1 10^3/ul (0.0-0.1); BASOPHILS % 1.4 % (0.0-2.0); EOSINOPHILS # 0.4 10^3/ul (0.0-0.5); EOSINOPHILS % 5.5 % (0.0-7.0); HEMATOCRIT 44.2 % (42.0-52.0); LYMPHOCYTES # 1.6 10^3/ul (0.8-2.9); LYMPHOCYTES % 25.4 % (15.0-51.0); MEAN CORPUSCULAR HEMOGLOBIN 31.5 pg (29.0-33.0); MEAN CORPUSCULAR HGB CONC 33.9 g/dl (32.0-37.0); MEAN CORPUSCULAR VOLUME 92.9 fl (82.0-101.0); MEAN PLATELET VOLUME 10.2 fl (7.4-10.4); MONOCYTE # 0.4 10^3/ul (0.3-0.9); MONOCYTES % 6.9 % (0.0-11.0); NEUTROPHIL # 3.9 10^3/ul (1.6-7.5); NEUTROPHILS % 60.5 % (39.0-77.0); PLATELET COUNT 232 10^3/UL (140-415); RED BLOOD COUNT 4.76 10^6/ul (4.70-6.10); RED CELL DISTRIBUTION WIDTH 13.7 % (11.5-14.5); WHITE BLOOD COUNT 6.4 10^3/ul (4.8-10.8)
[2016-08-02 07:44] LABS: CALCIUM 8.6 mg/dl (8.4-10.2); CREATININE 0.94 mg/dl (0.61-1.24); POTASSIUM 3.7 mmol/L (3.5-5.1)
[2016-08-02] MEDS: HEPARIN 5,000 UNIT/0.5 ML VIAL SC SCH (09:00)
[2016-08-02] MEDS: LISINOPRIL 5 MG TAB PO SCH (09:05)
[2016-08-02] MEDS: NICOTINE (7 MG/24 HR) PATCH TRANSDERM SCH (09:07)
--- NOTE | 2016-08-02 11:46 | PDOCDIS ---
Discharge Instructions CONDITION Patient Condition: Stable HOME CARE INSTRUCTIONS: Special Diet: cardiac diet ACTIVITY: Activity Restrictions: Slowly Increase Activity FOLLOW UP/APPOINTMENTS Appointments Please take your medications, see your doctor in 1 week in the clinic. TIMI ELENA Aug 02, 2016 11:46
[2016-08-02] MEDS ORDERED: CARV3.1260 PO (11:48)
[2016-08-02] MEDS ORDERED: NICO1PAT19 TRANSDERM (11:48)
[2016-08-02] MEDS ORDERED: LISI-313 PO (11:48)
[2016-08-02] MEDS ORDERED: LAS20 PO (11:48)
--- NOTE | 2016-08-02 11:52 | CONS ---
Date/Time of Note Date/Time of Note DATE: 08/02/16 TIME: 11:50 Assessment/Plan Assessment/Plan Chief Complaint/Hosp Course IMPRESSION: 1. Congestive heart failure exacerbation by history, systolic, acute on chronic. 2. Abnormal electrocardiogram, assess for acute coronary syndrome.-negative troponin x 3. Now s/p Lexiscan with no ischemia/EF 20% 3. Shortness of breath secondary to #1. 4. History of cardiomyopathy with severely depressed left ventricular ejection fraction. 5. Ongoing tobacco usage. 6. Illicit drug use. 7. Hyperkalemia-resolved 8. Increased BNP. Recc: -Tele -serial ecg's -Continue coreg/zestril -Continue lasix diuresis PO -D/C plannning Problems: Consultation Date/Type/Reason Admit Date/Time Jul 29, 2016 at 23:58 Initial Consult Date 07/30/16 Type of Consultation: Cardiology Reason for Consultation CHF Referring Provider: TIMI ELENA Exam/Review of Systems Vital Signs Vitals Vital Signs Date Time Temp Pulse Resp B/P Pulse Ox O2 Delivery O2 Flow Rate FiO2 08/02/16 11:13 97.6 73 18 105/70 97 07/29/16 22:26 21 Intake and Output 08/01/16 08/01/16 08/02/16 14:59 22:59 06:59 Intake Total 1000 ml 620 ml Output Total 800 ml Balance 200 ml 620 ml Exam Review of Systems: CONSTITUTIONAL: No fevers, chills. PULMONARY: No sob CARDIOVASCULAR: No chest pain/palpitations GASTROINTESTINAL: No nausea/vomiting. GENITOURINARY: No hematuria/dysuria. MUSCULOSKELETAL: No myagias/arthalgias. PSYCHIATRIC: The patient denies depression. NEUROLOGIC: lethargic Constitutional: alert Psych: no complaints Head: normocephalic ENMT: mucosa pink and moist Neck: jvd (9 cm water), supple Respiratory: diminished breath sounds (at bases/B) Cardiovascular: regular rate and rhythm Gastrointestinal: non-tender, soft Musculoskeletal: muscle tone (normal) Extremities: edema (none) Neurological: other (NO focal deficits) Results Result Diagram: 08/02/16 0610 08/02/16 0610 Results 24 hrs Laboratory Tests Test 08/02/16 06:10 White Blood Count 6.4 Red Blood Count 4.76 Hemoglobin 15.0 Hematocrit 44.2 Mean Corpuscular Volume 92.9 Mean Corpuscular Hemoglobin 31.5 Mean Corpuscular Hemoglobin Concent 33.9 Red Cell Distribution Width 13.7 Platelet Count 232 Mean Platelet Volume 10.2 Neutrophils % 60.5 Lymphocytes % 25.4 Monocytes % 6.9 Eosinophils % 5.5 Basophils % 1.4 Nucleated Red Blood Cells % 0.0 Neutrophils # 3.9 Lymphocytes # 1.6 Monocytes # 0.4 Eosinophils # 0.4 Basophils # 0.1 Nucleated Red Blood Cells # 0.0 Sodium Level 139 Potassium Level 3.7 Chloride Level 104 Carbon Dioxide Level 29 Anion Gap 10 Blood Urea Nitrogen 26 H Creatinine 0.94 Glucose Level 118 Calcium Level 8.6 Medications Medications Current Medications Acetaminophen (Tylenol Tab) 650 mg Q6H PRN PO PAIN AND OR ELEVATED TEMP Last administered on 07/30/16 09:41; Admin Dose 650 MG; Start 07/30/16 at 01:00 Heparin Sodium (Porcine) (Heparin (5000 Units/0.5 ml)) 5,000 unit BID SC Last administered on 07/31/16 09:54; Admin Dose 5,000 UNIT; Start 07/30/16 at 09:00 Ondansetron HCl (Zofran Inj) 4 mg Q6H PRN IV NAUSEA AND/OR VOMITING; Start 07/30 at 01:00 Pantoprazole (Protonix Tab) 40 mg DAILY@06 PO Last administered on 08/02/16 06 :29; Admin Dose 40 MG; Start 07/31/16 at 06:00 Nicotine (Nicoderm 7 Mg/ 24 Hr) 1 patch DAILY TRANSDERM Last administered on 09:07; Admin Dose 1 PATCH; Start 07/30/16 at 13:00 Lisinopril (Zestril) 2.5 mg DAILY PO Last administered on 08/02/16 09:05; Admin Dose 2.5 MG; Start 07/31/16 at 09:00 Carvedilol (Coreg) 3.125 mg BID PO Last administered on 08/02/16 09:05; Admin Dose 3.125 MG; Start 07/30/16 at 21:00 ADRIAN RIOS Aug 02, 2016 11:52
--- NOTE | 2016-08-02 13:17 | DS ---
DATE OF ADMISSION: 07/29/2016 DATE OF DISCHARGE: 08/02/2016 HOSPITAL COURSE: The patient came in with shortness of breath and cough. He has a prior history of CHF. He was admitted. He was also found with positive methamphetamine use and positive smoking hi story. He had an echocardiogram performed that showed ejection fraction of 20% to 25%, severe globa l left ventricular systolic dysfunction, normal left ventricular wall thickness, mild enlargement of left ventricular cavity. There was moderate enlargement of the right ventricle, moderate right ruel tricular hypokinesis, moderate enlargement of the left atrium, mild enlargement of the right atrium, moderate to severe mitral valve regurg. He was admitted, seen by cardiology team, and underwent ca rdiac stress test which both the nuclear stress portions were essentially negative. He ruled out fo r acute coronary syndrome as well. He was placed on blood pressure medicines to help control his ca rdiomyopathy, shortness of breath symptoms, and CHF symptoms, and symptoms improved. Eventually he was able to ambulate and tolerate a p.o. diet. His vital signs were stable as well. He was eap counselor ed about smoking cessation and also about drug cessation and was put on a nicotine patch as well. Maria Elena loredo will be discharged home today in improved condition. DISCHARGE MEDICATIONS: He will go home with 1. Coreg 3.125 mg b.i.d. 2. Lasix 20 mg b.i.d. 3. Lisinopril 2.5 mg daily. 4. Nicotine patch 7 mg transdermal daily. He will need to follow up with primary care doctor within the next 1 to 2 weeks. FINAL DIAGNOSES: 1. Shortness of breath and cough secondary to congestive heart failure exacerbation with an ejectio n fraction of 20% to 25%. 2. 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 3. Chest pressure, ruled out for acute coronary syndrome. 4. History of methamphetamine abuse. Counseled on cessation. 5. History of smoking. Counseled on cessation. 6. Hyperkalemia, resolved. Time spent discharging the patient: 40 minutes. Dictated By: TIMI BAEZ/DOUG Conf#: [id number] DID#: [id number]
--- NOTE | 2016-08-02 17:50 | CONS ---
Date/Time of Note Date/Time of Note DATE: 08/02/16 TIME: 17:48 Consult Date/Type/Reason Admit Date/Time Jul 29, 2016 at 23:58 Initial Consult Date 07/30/16 Type of Consultation: pulm Ordering Provider: TIMI ELENA Subjective Being d/c'ed at time of visit. Objective Vital Signs Date Time Temp Pulse Resp B/P Pulse Ox O2 Delivery O2 Flow Rate FiO2 08/02/16 12:02 78 08/02/16 11:13 97.6 18 105/70 97 07/29/16 22:26 21 Intake and Output 08/01/16 08/01/16 08/02/16 15:00 23:00 07:00 Intake Total 1000 ml 620 ml Output Total 800 ml Balance 200 ml 620 ml Exam EENT: Neck supple; no JVD; no LAD CVS: RRR, S1 and S2 CHEST: bibaslar rales ABD: Soft, NT, + BS EXT: No c/c/e Results/Medications Result Diagram: 08/02/16 0610 08/02/16 0610 Results 24 hrs Laboratory Tests Test 08/02/16 06:10 White Blood Count 6.4 Red Blood Count 4.76 Hemoglobin 15.0 Hematocrit 44.2 Mean Corpuscular Volume 92.9 Mean Corpuscular Hemoglobin 31.5 Mean Corpuscular Hemoglobin Concent 33.9 Red Cell Distribution Width 13.7 Platelet Count 232 Mean Platelet Volume 10.2 Neutrophils % 60.5 Lymphocytes % 25.4 Monocytes % 6.9 Eosinophils % 5.5 Basophils % 1.4 Nucleated Red Blood Cells % 0.0 Neutrophils # 3.9 Lymphocytes # 1.6 Monocytes # 0.4 Eosinophils # 0.4 Basophils # 0.1 Nucleated Red Blood Cells # 0.0 Sodium Level 139 Potassium Level 3.7 Chloride Level 104 Carbon Dioxide Level 29 Anion Gap 10 Blood Urea Nitrogen 26 H Creatinine 0.94 Glucose Level 118 Calcium Level 8.6 Assessment/Plan Additional Assessment/Plan IMP: 1. CHF 2. History of amphetamine use. Counseled about cessation. 3. Smoking history - nicotine patch and counseled on cessation of tobacco RECS: 1. Diuresis 2 Afterload reduction 3. OOB 4. d/c home TRESSA MIX MD Aug 02, 2016 17:50
== END 2016-08-02 15:43 | disposition home or self-care (01) | DRG 292 ==
LOC: E/R 19:46 → TEL 23:58
PROVIDERS: ADMIT Internal Medicine; ATTEND Internal Medicine
DX: I50.23 Acute on chronic systolic (congestive) heart failure (principal); J44.1 Chronic obstructive pulmonary disease with (acute) exacerbation; I42.7 Cardiomyopathy due to drug and external agent; F15.90 Other stimulant use, unspecified, uncomplicated; F17.200 Nicotine dependence, unspecified, uncomplicated; E87.5 Hyperkalemia; Z87.891 Personal history of nicotine dependence
CPT/HCPCS: 36415; 71010; 78452; 80048; 80053; 80061; 80306; 80307; 83036; 83735; 83880; 84100; 84443; 84484; 85025; 85610; 85730; 93005; 93017; 93306; 94664; 96374; J1940; A9500; A9505; J1644; J2785